=== PATIENT | male | born 1990 | race Caucasian/White ===

== ENCOUNTER 2019-12-31 10:44 | Emergency (ER) | payer MEDICAID ==
[~2019-12-31] VITALS: Ht 180.3 cm; Wt 85.7 kg
[2019-12-31 10:57] VITALS: Ht 180.3 cm; Wt 85.7 kg
[2019-12-31 12:40] VITALS: BP 137/71
== END 2019-12-31 12:40 | disposition home or self-care (01) ==
LOC: ED 10:44
DX: T58.91XA Toxic effect of carbon monoxide from unspecified source, accidental (unintentional), initial encounter (principal); R51 Headache; K21.9 Gastro-esophageal reflux disease without esophagitis; Y92.89 Other specified places as the place of occurrence of the external cause
CPT/HCPCS: 36600